=== PATIENT | male | born 1965 | race Caucasian/White ===

== ENCOUNTER 2021-06-07 12:44 | Outpatient (CLI) | payer MEDICARE, SELFPAY ==
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
== END 2021-06-07 12:45 | disposition home or self-care (01) ==
PROVIDERS: PCP Physician Assistant; Visit Provider Physician Assistant
DX: Z12.2 Encounter for screening for malignant neoplasm of respiratory organs (principal); M54.50 Low back pain, unspecified
CPT/HCPCS: 72100

== ENCOUNTER 2021-06-11 10:49 | Outpatient (CLI) | payer MEDICARE, SELFPAY ==
--- NOTE | ~2021-06-11 | CT_ITS ---
EXAMINATION: CT lung screening DATE: 06/11/2021 11:07 INDICATION: Personal history of nicotine dependence,, prior smoker with 30 pack year history TECHNIQUE: Computed tomography (CT) of the chest was performed without intravenous contrast. The dose -length product (DLP) was 265.36 mGy-cm. Automated exposure control and iterative reconstruction tech [employer] were employed. COMPARISON: None FINDINGS: Respiratory motion artifact somewhat limits the examination. There is mild emphysema. No bobo spicious pulmonary nodules are identified. There is dependent atelectasis. No pleural effusion or pne umothorax. No pathologically enlarged thoracic lymph nodes are identified. The heart size is normal. There is mild thoracic spondylosis. IMPRESSION: 1. Lung-RADS category 1: Negative. Continue annual screening with noncontrast low-dose chest CT in 12 months. Reviewed, dictated and finalized at location B. IMPRESSION: 1. Lung-RADS category 1: Negative. Continue annual screening with noncontrast l ow-dose chest CT in 12 months.
== END 2021-06-11 10:50 | disposition home or self-care (01) ==
PROVIDERS: PCP Physician Assistant; Visit Provider Physician Assistant
DX: Z12.2 Encounter for screening for malignant neoplasm of respiratory organs (principal); Z87.891 Personal history of nicotine dependence
CPT/HCPCS: 71271

== ENCOUNTER 2021-11-23 08:14 | Outpatient (CLI) | payer OTHER, SELFPAY ==
--- NOTE | 2021-11-23 | ECHO_ITS ---
Patient Info Name: Yovani Hummel Age: 56 years : 1965 Gender: Male Ht: 65 in Wt: 230 lbs BSA: 2.24 m2 HR: 76 bpm BP: 124 / 75 mmHg Heart Rhythm: Sinus Rhythm Exam Date: 11/23/2021 9:08 AM Exam Location: [facility] Patient Status: Outpatient Admit Date: 11/23/2021 Staff Ordering Physician: Jesenia, Yesica HENDERSON [employer] Le[employer] Operator: Endy Mesa RDCS Attending Provider: Jesenia, Yesica HENDERSON Referring Physician: Jesenia MERINO; Exam Type: CA echo doppler color flow Study Info Indications R06.00 - Dyspnea, unspecified Complete two-dimensional, color flow and Doppler transthoracic echocardiogram is performed. Summary 1. Complete two-dimensional, color flow and Doppler transthoracic echocardiogram is performed. 2. Left ventricular systolic function is normal, estimated at 50-55%. 3. There is mildly increased left ventricular wall thickness. 4. The left ventricular diastolic function is grade I diastolic dysfunction. 5. Right ventricular systolic function is normal. 6. The aortic root size at the sinus of Valsalva is dilated. Left Ventricle Left ventricular chamber dimension is normal. Left ventricular systolic function is normal, estimated at 50-55%. There is mildly increased left ventricular wall thickness. The left ventricular diastolic function is grade I diastolic dysfunction. Right Ventricle Right ventricular chamber dimension is normal. Right ventricular systolic function is normal. Left Atria Left atrial chamber dimension is normal. Right Atria Right atrial chamber dimension is normal. Aortic Valve The aortic valve is not well visualized. There is no aortic valve stenosis. There is no aortic valve regurgitation. Pulmonic Valve The pulmonic valve is not well visualized. Mitral Valve The mitral valve has normal leaflets. There is no mitral valve stenosis. There is trace mitral valve regurgitation. Tricuspid Valve The tricuspid valve leaflets are not well visualized. There is no tricuspid valve regurgitation. Pericardium/Pleural There is no pericardial effusion. Inferior Vena Cava Normal inferior vena cava with <50% collapse upon inspiration consistent with elevated right atrial pressure, 8 mmHg. Aorta The aortic root size at the sinus of Valsalva is dilated. Left Ventricular Outflow Tract Name Value Normal LVOT 2D LVOT Diameter 2.3 cm LVOT Doppler LVOT Peak Gradient 4 mmHg LVOT Mean Gradient 3 mmHg LVOT VTI 23 cm LVOT VTI/AV VTI Ratio 1.1 LVOT Stroke Volume 95 ml LVOT CO 7.4 l/min LVOT CI 3.3 l/min/m2 Mitral Valve Name Value Normal MV Doppler MV Peak Gradient 2 m
--- NOTE | 2021-11-23 14:15 | P.PCNPFT_ITS ---
PFT Procedure Performed PFT Procedure Performed Spirometry w/o Bronchodil PFT Interpretation DOS: 11/23/2021 REQUESTING: BEATRIZ Arriaza REASON FOR TESTING: Dyspnea, unspecified asthma PULMONARY FUNCTION TESTS The results of testing are not reliable or reproducible. this patient had difficulty performing the maneuvers. He attempted multiple trials of plethysmography, DLCO and post flow volume loops. There were no acceptable or reproducible results. Several respiratory therapists attempted to women's swim coach him. Spirometry: FEV1 is 2.98 L, 102% predicted, normal. FVC is 3.22 L, 90% predicted, normal. FEV1 /FVC is 93% normal. IER22-44% is 3.90 L, normal. No bronchodilator was given. IMPRESSION: Normal spirometry. The remainder of the testing was not completed due to patient factors. Sowmya Bravo MD
== END 2021-11-23 08:15 | disposition home or self-care (01) ==
LOC: ANHCARD 08:16
PROVIDERS: PCP Physician Assistant; Visit Provider Physician Assistant
DX: R06.00 Dyspnea, unspecified (principal); J45.909 Unspecified asthma, uncomplicated
CPT/HCPCS: 93306; 94375